=== PATIENT | male | born 1945 | race Caucasian/White ===

== ENCOUNTER → 2019-10-20 | Outpatient (CLI) | payer OTHER | LOC: SJCVCIMAG 10:05 | PROVIDERS: ATTEND Internal Medicine Cardiovascular Disease | DX: I65.23 Occlusion and stenosis of bilateral carotid arteries (principal); R00.1 Bradycardia, unspecified; I25.10 Atherosclerotic heart disease of native coronary artery without angina pectoris; I10 Essential (primary) hypertension; E78.00 Pure hypercholesterolemia, unspecified; E11.9 Type 2 diabetes mellitus without complications; J44.9 Chronic obstructive pulmonary disease, unspecified; F17.210 Nicotine dependence, cigarettes, uncomplicated; Z79.899 Other long term (current) drug therapy; Z82.49 Family history of ischemic heart disease and other diseases of the circulatory system ==

== ENCOUNTER → 2019-12-08 | Outpatient (CLI) | payer OTHER | LOC: SJCVCIMAG 09:13 | PROVIDERS: ATTEND Internal Medicine Cardiovascular Disease | DX: I25.10 Atherosclerotic heart disease of native coronary artery without angina pectoris (principal); I10 Essential (primary) hypertension; E78.00 Pure hypercholesterolemia, unspecified; F17.200 Nicotine dependence, unspecified, uncomplicated ==

== ENCOUNTER → 2019-12-17 | Outpatient (CLI) | payer OTHER ==
[~2019-12-17] VITALS: Ht 188 cm; Wt 108.4 kg
[~2019-12-17] MED LIST: ASA81BEC PO; CADUET 10 MG-81 EACH PO; CINNAMON500 MG PO; FISH OIL 1,0001 EAC9 PO; HYZAAR 100-12.1 EACH PO; LOPRESSOR50 MG PO; METFORMIN HCL500 M3; SUPER THERAVIT1 EACH PO; SYNTHROID125 MC1 PO
[2019-12-17 08:51] VITALS: BP 138/70
[2019-12-17 09:11] LABS: HEMATOCRIT 37.2 % (42.0-52.0); HEMOGLOBIN 12.3 gm/dL (14.0-18.0); MCH 33.3 pg (26.0-34.0); MCHC 33.1 g/dL (28.0-37.0); MCV 100.5 fL (80.0-100.0); RBC 3.7 mil/uL (4.50-6.00); RDW 15.1 % (10.5-14.5); WBC 6.4 thou/uL (4.0-11.0)
[2019-12-17 09:21] LABS: CALCIUM 8.8 mg/dL (8.5-10.1); CREATININE 1.1 mg/dL (0.7-1.3); POTASSIUM 4.6 mmol/L (3.5-5.1)
--- NOTE | 2019-12-17 09:51 | EKG ---
[facility] [place] [address] ELECTROCARDIOGRAM REPORT Name: COURTNEY MARX Room #: REG [facility]..#: [id number] Admission: 12/17/19 Attend Phys: Petr Moctezuma MD, Discharge: Date of : 43 Report #: [id number] THIS REPORT FOR: cc: Douglas Ferguson Louis D. DO Lammoglia, Francisco J. MD ~ THIS REPORT FOR: //name// [facility] Test Date: 2019-12-17 Test Time: 09:05:50 Pat Name: COURTNEY MARX Department: Room: Gender: Tool Maker Bench: [facility] : 1945 Requested By: Petr Moctezuma Order Number: [id number] MD: Uday Snyder Measurements Intervals [place] Rate: 57 P: 23 OR: 174 QRS: 42 QRSD: 99 T: 44 QT: 422 QTc: 411 Interpretive Statements Sinus rhythm low voltage, extremity leads Poor R-wave progression, late transition Nonspecific ST-T wave abnormalities Baseline wander in lead(s) V3 No previous ECG available for comparison Electronically Signed On 12-17-2019 9:51:30 CDT by Uday Snyder [email or web address] <ELECTRONICALLY SIGNED> By: Uday Snyder MD 12/17/19950 4 4 Uday Snyder MD /EPI
--- NOTE | 2019-12-17 16:53 | CATHLAB ---
[facility] [address] INVASIVE PROCEDURE REPORT Name: COURTNEY MARX Room #: REG [facility]JI HerringEdwige#: [id number] Admission: 12/17/19 Attend Phys: Petr Moctezuma MD, Discharge: Date of : 43 Report #: [id number] THIS REPORT FOR: cc: Douglas Ferguson Louis D. DO Mancuso, Gerald M. 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 A PINNACLE 6FR TIF Sheath #[id number] sheath was inserted into the RFA^. Coronary angiography was performed using coronary diagnostic catheters. The right coronary system was accessed and visualized with a JR4 catheter. The left coronary system was accessed and visualized with a JL4 catheter. The left ventricle was accessed and visualized with a PIGTAIL catheter. Left ventriculogram was performed in 30 degree projection. An aortogram of the abdominal aorta was performed. Hemostasis was obtained with manual pressure following sheath removal without any complications. The patient tolerated the procedure well and there were no complications associated with the procedure. There was no hematoma. Intraoperative Conscious Sedation Sedation start time: 10:14 Case end Time: 11:16 Fentanyl 200 mcg Versed 4 mg [facility] [place] [address] INVASIVE PROCEDURE REPORT Name: COURTNEY MARX Room #: [facility] Yeny#: [id number] Admission: 12/17/19 Attend Phys: Petr Moctezuma, Discharge: Date of : 43 Report #: [id number] Fluoro Time: 6.40 minutes Dose: DAP 51233.50 cGycm2 1387 mGy Contrast Type and Amount: Omnipaque 95 ml Hemodynamics The aortic pressure is 153/70 mmHg with a mean of 100 mmHg. The left ventricular pressure is 155/6 mmHg with a mean of mmHg. The left ventricular end diastolic pressure is 21 mmHg. Conclusion #1. Normal left jugular size and systolic function EF 50% range. #2 significant left main calcification but with moderate stenosis no high-grade disease less than 50% giving rise to LAD and circumflex #3 LAD extends around the apex is ectatic and proximally calcified but no high-grade occlusive disease diagonal system mildly diseased #4 circumflex OM also has a ramus branch which is mild disease in a codominant circumflex system which is an eccentric 40% lesion diffuse distal disease and a collateral filling from the [place] circumflex to the PDA of the dominant and occluded RCA. #5 dominant right has an eccentric 70% proximal lesion and totally occludes in the mid vessel. The PDA is filled via collateral filling from the circumflex. 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 #7 the right common femoral SFA is extensively calcified mid and distal SFA but not flow-limiting giving rise to two-vessel runoff. #8 catheter placement in the left common iliac reveals an eccentric 50% left common femoral stenosis heavily calcified mid distal SFA and a short segment total total occlusion of the distal SFA at the adductor canal giving rise to a popliteal branch with some impaired distal runoff. Recommendations and plan: Continue aggressive risk factor modification. Patient with claudication symptoms of the left lower extremity. Will evaluate noninvasively with Doppler and have him see interventional radiology Dr. Angel considering possible intervention to this left SFA occluded segment. <ELECTRONICALLY SIGNED> By: Petr Moctezuma MD, [facility] 12/17/191652 52 52 Petr Moctezuma MD, FACC /INF
== END | disposition home or self-care (01) ==
LOC: CATH 07:47
PROVIDERS: ATTEND Internal Medicine Cardiovascular Disease
DX: R94.39 Abnormal result of other cardiovascular function study (principal); R06.00 Dyspnea, unspecified; I10 Essential (primary) hypertension; I25.10 Atherosclerotic heart disease of native coronary artery without angina pectoris; E11.9 Type 2 diabetes mellitus without complications; E78.5 Hyperlipidemia, unspecified; F17.210 Nicotine dependence, cigarettes, uncomplicated; Z98.890 Other specified postprocedural states; Z79.899 Other long term (current) drug therapy

== ENCOUNTER → 2020-01-04 | Outpatient (CLI) | payer OTHER | LOC: SJCVCIMAG 12:36 | PROVIDERS: ATTEND Nuclear Medicine Nuclear Cardiology | DX: I70.202 Unspecified atherosclerosis of native arteries of extremities, left leg (principal); I25.10 Atherosclerotic heart disease of native coronary artery without angina pectoris; I10 Essential (primary) hypertension; E78.00 Pure hypercholesterolemia, unspecified; J44.9 Chronic obstructive pulmonary disease, unspecified; E11.9 Type 2 diabetes mellitus without complications; F17.210 Nicotine dependence, cigarettes, uncomplicated; Z79.899 Other long term (current) drug therapy ==

== ENCOUNTER → 2020-07-18 | Outpatient (CLI) | payer OTHER | LOC: SJCVC 15:11 | PROVIDERS: ATTEND Internal Medicine Cardiovascular Disease | DX: R94.31 Abnormal electrocardiogram [ECG] [EKG] (principal); I44.5 Left posterior fascicular block; I25.10 Atherosclerotic heart disease of native coronary artery without angina pectoris; I73.9 Peripheral vascular disease, unspecified; I77.9 Disorder of arteries and arterioles, unspecified; I10 Essential (primary) hypertension; E78.00 Pure hypercholesterolemia, unspecified; E11.9 Type 2 diabetes mellitus without complications; J44.9 Chronic obstructive pulmonary disease, unspecified; F17.210 Nicotine dependence, cigarettes, uncomplicated; Z72.89 Other problems related to lifestyle; Z79.82 Long term (current) use of aspirin; Z79.899 Other long term (current) drug therapy; Z79.84 Long term (current) use of oral hypoglycemic drugs ==

== ENCOUNTER → 2021-02-21 | Outpatient (CLI) | payer OTHER | LOC: SJCVC 13:01 | PROVIDERS: ATTEND Internal Medicine Cardiovascular Disease | DX: I44.7 Left bundle-branch block, unspecified (principal); R94.31 Abnormal electrocardiogram [ECG] [EKG]; I73.9 Peripheral vascular disease, unspecified; E11.9 Type 2 diabetes mellitus without complications; I65.23 Occlusion and stenosis of bilateral carotid arteries; J44.9 Chronic obstructive pulmonary disease, unspecified; Z72.0 Tobacco use; Z82.49 Family history of ischemic heart disease and other diseases of the circulatory system; Z72.89 Other problems related to lifestyle; Z79.82 Long term (current) use of aspirin; Z79.899 Other long term (current) drug therapy; Z79.84 Long term (current) use of oral hypoglycemic drugs ==